=== PATIENT | male | born 1980 ===

== ENCOUNTER 2024-11-20 10:27 | Outpatient (CLI) | payer OTHER, SELFPAY ==
[2024-11-20 13:12] LABS: Abs Immature Grans 0.04 10^3/uL (0.0-0.06); Absolute Basophil Count 0.09 10^3/uL (0.0-0.2); Absolute Eosinophil Count 0.21 10^3/uL (0.0-0.7); Absolute Neutrophil Count 6.87 10^3/uL (1.2-6.7); Basophils % 0.9 %; HCT 42.6 % (40.0-50.0); HGB 14.1 g/dL (13.5-17.5); Immature Grans % 0.4 %; Lymphocytes % 21.1 %; MCH 33.9 pg (27.0-33.0); MCHC 33.1 % (32.0-36.0); MCV 102 fL (80-95); MPV 11.6 fL (8.0-11.0); Monocytes % 9.6 %; Platelet Count 242 10^3/uL (130-400); RBC 4.16 10^6/uL (4.36-5.78); RDW-SD 60.8 fL; WBC 10.41 10^3/uL (4.4-10.8)
[2024-11-20 13:23] LABS: Hemoglobin A1C 6.3 % (<5.7)
[2024-11-20 14:01] LABS: ALT 38 U/L (16-63); AST 111 U/L (15-37); Albumin 3.1 g/dL (3.4-5.0); Alkaline Phosphatase 212 U/L (46-116); Anion Gap 9.9 mmol/L (3-11); BUN 13 mg/dL (7-18); Bilirubin, Total 1.5 mg/dL (0.2-1.0); CO2 26.1 mmol/L (21.0-32.0); CREATININE 0.8 mg/dL (0.70-1.30); Calcium 9.7 mg/dL (8.5-10.1); Calculated LDL 155 mg/dL (<100); Chloride 100 mmol/L (98-107); Cholesterol 215 mg/dL (<200); Estimated GFR 111.22 (mL/min/1.73m2); Folate 6.6 ng/mL (8.6-20.0); Glucose 101 mg/dL (74-106); HDL Cholesterol 17 mg/dL (>or=40); Potassium 4.1 mmol/L (3.5-5.1); Sodium 136 mmol/L (136-145); TSH 2.89 uIU/mL (0.36-3.74); Total Protein 9.1 g/dL (6.4-8.2); Triglyceride 216 mg/dL (<150); Vitamin B12 415 pg/mL (193-986)
[2024-11-20 14:12] LABS: Lipase 69 U/L (<78)
== END 2024-11-20 10:28 | disposition home or self-care (01) ==
PROVIDERS: Visit Provider Family Medicine
DX: F10.20 Alcohol dependence, uncomplicated (principal); Z00.00 Encounter for general adult medical examination without abnormal findings
CPT/HCPCS: 36415; 80053; 80061; 83690; 82607; 82746; 83036; 84443; 85025